=== PATIENT | female | born 1950 | race Caucasian/White ===

== ENCOUNTER 2017-07-09 15:06 | Outpatient (CLI) | payer MEDICARE | END 2017-07-09 15:07 | disposition home or self-care (01) | LOC: BICRAD 15:06 | PROVIDERS: ATTEND Internal Medicine Gastroenterology | DX: K59.00 Constipation, unspecified (principal) | CPT/HCPCS: 74018 ==

== ENCOUNTER 2019-12-31 09:05 | Outpatient (CLI) | payer MEDICARE, OTHER ==
--- NOTE | 2019-12-31 12:42 | CT ---
Ct abdomen and pelvis with oral and iv contrast: HISTORY: Upper abdominal pain, midepigastric pain. IVS, reflux. COMPARISON: 08/23/2015. FINDINGS: Chronic changes in the right middle lobe, lingula, and posterior left lower lobe are again seen. The re is an incompletely visualized 6 mm nodule in the posterior aspect of the right lower lobe which wa s not definitely seen on the previous study. A similar peripheral 9 mm nodule is seen in the left lo wer lobe. Calcified granulomas in the liver and spleen are redemonstrated. The pancreas, adrenal glands, and r ight kidney are normal. The 5 cm septated parapelvic cyst in the left kidney is stable. No free air, free fluid, or lymphadenopathy is seen in the abdomen or pelvis. There are vascular penny cifications without evidence of aneurysmal dilatation of the abdominal aorta. There are degenerative changes in the spine. The small bowel loops are not abnormally dilated. No calcified gallstones are seen. The patient is post hysterectomy. IMPRESSION: 1. Stable CT scan of the abdomen and pelvis. No acute process. 2. New nodules in the lower lung clark should be evaluated with a dedicated CT scan of the chest. POS: [facility]
== END 2019-12-31 09:06 | disposition home or self-care (01) ==
LOC: SCSCT 09:05
PROVIDERS: ATTEND Internal Medicine Gastroenterology
DX: R10.13 Epigastric pain (principal); R10.10 Upper abdominal pain, unspecified; R91.8 Other nonspecific abnormal finding of lung field
CPT/HCPCS: 74177; 82565

== ENCOUNTER 2023-12-27 03:10 | Inpatient (IN) | payer MEDICARE, OTHER ==
[2023-12-27] MEDS ORDERED: Morphine 4 MG/ML VIAL ONE (03:32)
[2023-12-27] MEDS ORDERED: Ondansetron PF 4 MG/2 ML Vial ONE (03:33)
[2023-12-27 04:46] LABS: Troponin I 0.172 ng/mL (< 0.028)
[2023-12-27] MEDS ORDERED: Acetaminophen 500 MG TAB ONE (05:40)
[2023-12-27 06:13] LABS: #Basophils Less than 0.03 10x3/uL (0.0-0.2); %Basophils 0.2 % (0.0-1.0); %Eosinophils 0.5 % (0.0-10.0); %Lymphocytes 7.1 % (21.0-51.0); %Monocytes 7.7 % (0.0-10.0); %Neutrophils 83.5 % (42.0-75.0); Hematocrit 40.4 % (36.0-47.0); Hemoglobin 14.5 g/dL (12.0-16.0); Mean Corpuscular HGB CONC 35.9 g/dL (32.0-36.0); Mean Corpuscular Volume 94.6 fL (78.0-98.0); Mean Platelet Volume 9.3 fL (7.4-10.4); Platelet Count 203 10x3/uL (130-400); RBC Distribution Width 12.6 % (11.5-14.5); Red Blood Cell (RBC) Count 4.27 mill/uL (4.20-5.40)
[2023-12-27 06:19] LABS: ALT (SGPT) 15 U/L (8-55); AST (SGOT) 23 U/L (5-34); Albumin 3.4 g/dL (3.4-4.8); Alkaline Phosphatase 86 U/L (40-110); Anion Gap 13 mmol/L (10-20); BUN (Urea Nitrogen) 8 mg/dL (9.8-20.1); Bilirubin, Total 0.8 mg/dL (0.2-1.2); Calc. Creatinine Clearance 0 mL/min (70-130); Carbon Dioxide 19 mmol/L (23-31); Chloride 96 mmol/L (98-107); Estimated GFR 91; Globulin 2.5 g/dL (2.4-3.5); Glucose 74 mg/dL (83-110); Potassium 3.1 mmol/L (3.5-5.1); Protein, Total 5.9 g/dL (5.8-8.1); Sodium 125 mmol/L (136-145)
[2023-12-27] MEDS ORDERED: Calcium Carbonate 500 MG ChewTAB PO PRN (07:31)
[2023-12-27] MEDS ORDERED: Ondansetron PF 4 MG/2 ML Vial IVP PRN (07:31)
[2023-12-27] MEDS ORDERED: Benzonatate 100 MG CAP PO PRN (07:36)
[2023-12-27 08:11] VITALS: BMI 19.6
[2023-12-27 08:48] LABS: Troponin I 0.174 ng/mL (< 0.028)
[2023-12-27] MEDS: Potassium Chloride 20 MEQ TAB PO SCH ×2 (08:52→18:41)
[2023-12-27] MEDS: Sodium Bicarbonate Tab 325 MG TAB PO SCH (08:52)
[2023-12-27] MEDS: Sodium Chloride 0.9% 1,000 ML IV SCH (08:53)
[2023-12-27] MEDS: Pantoprazole DR 40 MG TAB PO SCH (08:53)
[2023-12-27] MEDS: guaiFENesin ER 600 MG TAB PO SCH (08:53)
[2023-12-27] MEDS: Aspirin 81 mg Enteric Coated Tablet PO SCH (08:53)
[2023-12-27] MEDS ORDERED: Enoxaparin 40 MG (0.4 mL) SYRINGE SC SCH (09:00)
[2023-12-27] MEDS: Enoxaparin 80 MG (0.8 mL) SYRINGE SC SCH (10:02)
[2023-12-27] MEDS ORDERED: Iopamidol 370 76% 100 ML VIAL ONE (10:04)
[2023-12-27 11:53] LABS: Troponin I 0.325 ng/mL (< 0.028)
[2023-12-27] MEDS: Nitroglycerin 2% Ointment 1 INCH/1 GM Packet TOP SCH ×2 (13:22→20:59)
[2023-12-27] MEDS: LevoFLOXacin 750 mg/D5W 750 MG in Premix 1 BAG IVPB SCH (13:26)
[2023-12-27] MEDS: Acetaminophen 325 MG TAB PO PRN (13:43)
[2023-12-27 16:51] LABS: Troponin I 0.484 ng/mL (< 0.028)
[2023-12-27 17:19] LABS: Anion Gap 14 mmol/L (10-20); BUN (Urea Nitrogen) 7 mg/dL (9.8-20.1); Calc. Creatinine Clearance 55 mL/min (70-130); Calcium 8.3 mg/dL (7.8-10.44); Carbon Dioxide 21 mmol/L (23-31); Chloride 98 mmol/L (98-107); Estimated GFR 87; Glucose 85 mg/dL (83-110); Magnesium 1.3 mg/dL (1.6-2.6); Potassium 3.5 mmol/L (3.5-5.1); Sodium 129 mmol/L (136-145)
[2023-12-27] MEDS: Cefepime 1 GM in Sodium Chloride 0.9% 100 ML IVPB SCH (17:39)
[2023-12-27] MEDS ORDERED: Magnesium Sulfate 4 GM in Sodium Chloride 0.9% 250 ML 250 ML IVPB SCH (18:15)
[2023-12-27] MEDS: Magnesium Sulfate In Water 4 GM in Premix 1 BAG IVPB SCH (18:41)
[2023-12-27 19:59] LABS: Troponin I 0.611 ng/mL (< 0.028)
[2023-12-27] MEDS ORDERED: TOBRAMYCIN 300 MG/5 ML INH SCH (21:00)
[2023-12-27] MEDS: Pregabalin 75 MG CAP PO SCH (21:00)
[2023-12-27] MEDS: Amitriptyline HCl 10 MG TAB PO SCH (21:00)
[2023-12-27] MEDS: traZODone HCl 50 MG TAB PO SCH (21:01)
[2023-12-27] MEDS ORDERED: Morphine 2 MG/ML VIAL SLOW IVP PRN (21:38)
[2023-12-27] MEDS: Mometasone 100 MCG/Formoterol 5 MCG 120 PUFF INHALER INH SCH (21:51)
[2023-12-27 22:30] LABS: Critical Call Chem Troponin I RESULT DECREASING; Troponin I 0.538 ng/mL (< 0.028)
[2023-12-28 05:46] LABS: #Basophils 0.03 10x3/uL (0.0-0.2); %Basophils 0.3 % (0.0-1.0); %Eosinophils 1.1 % (0.0-10.0); %Lymphocytes 7.4 % (21.0-51.0); %Monocytes 7.5 % (0.0-10.0); Hematocrit 49.2 % (36.0-47.0); Hemoglobin 16.9 g/dL (12.0-16.0); Mean Corpuscular HGB CONC 34.3 g/dL (32.0-36.0); Mean Corpuscular Hemoglobin 34.2 pg (27.0-31.0); Mean Corpuscular Volume 99.6 fL (78.0-98.0); Mean Platelet Volume 8.7 fL (7.4-10.4); Platelet Count 187 10x3/uL (130-400); RBC Distribution Width 12.9 % (11.5-14.5); Red Blood Cell (RBC) Count 4.94 mill/uL (4.20-5.40)
[2023-12-28 05:55] LABS: Hemoglobin A1c 4.8 % (4.0-6.0)
[2023-12-28] MEDS: Ipratropium Bromide 2.5 ml Neb NEB SCH (07:09)
[2023-12-28 07:18] LABS: ALT (SGPT) 17 U/L (8-55); AST (SGOT) 36 U/L (5-34); Albumin 3.4 g/dL (3.4-4.8); Anion Gap 16 mmol/L (10-20); Calcium 8.1 mg/dL (7.8-10.44); Carbon Dioxide 14 mmol/L (23-31); Chloride 103 mmol/L (98-107); Cholesterol 227 mg/dl (< 200 Desired); Globulin 3.3 g/dL (2.4-3.5); Glucose 57 mg/dL (83-110); Protein, Total 6.7 g/dL (5.8-8.1); Sodium 128 mmol/L (136-145); Triglycerides 157 mg/dL (Less than 150)
[2023-12-28 08:25] LABS: Alkaline Phosphatase 100 U/L (40-110); BUN (Urea Nitrogen) 6 mg/dL (9.8-20.1); Bilirubin, Total 0.8 mg/dL (0.2-1.2); Calc. Creatinine Clearance 57 mL/min (70-130); Cardiac Risk 4.4 (Less than 4.5); Estimated GFR 90; HDL Cholesterol 56 mg/dL (>60 Neg Risk); LDL Cholesterol, Calculated 162 mg/dL; Magnesium 2.5 mg/dL (1.6-2.6)
[2023-12-28] MEDS ORDERED: Enoxaparin 80 MG (0.8 mL) SYRINGE SC SCH (09:00)
[2023-12-28] MEDS: Thyroid 30 MG TAB PO SCH (09:17)
[2023-12-28] MEDS: Pantoprazole DR 40 MG TAB PO SCH (09:18)
[2023-12-28] MEDS: Loratadine 10 MG TAB PO SCH (09:19)
[2023-12-28] MEDS: Enoxaparin 60 MG (0.6 mL) SYRINGE SC SCH (09:21)
[2023-12-28] MEDS: LevoFLOXacin 750 mg/D5W 750 MG in Premix 1 BAG IVPB SCH (09:29)
[2023-12-28] MEDS: Floranex 1 GM Packet PO SCH (12:01)
[2023-12-28] MEDS: Amlodipine 10 MG TAB PO SCH (12:02)
[2023-12-28] MEDS: Polyvinyl Alcohol 1.4%/Povidone 0.6% Opth Drops EA EYE PRN (15:32)
[2023-12-29 04:25] LABS: Hematocrit 44.7 % (36.0-47.0); Hemoglobin 15.4 g/dL (12.0-16.0); Mean Corpuscular HGB CONC 34.5 g/dL (32.0-36.0); Mean Corpuscular Hemoglobin 33.5 pg (27.0-31.0); Mean Corpuscular Volume 97.2 fL (78.0-98.0); Mean Platelet Volume 8.4 fL (7.4-10.4); Platelet Count 194 10x3/uL (130-400); RBC Distribution Width 12.9 % (11.5-14.5)
[2023-12-29 04:44] LABS: Anion Gap 14 mmol/L (10-20); BUN (Urea Nitrogen) 9 mg/dL (9.8-20.1); Calc. Creatinine Clearance 58 mL/min (70-130); Calcium 8.6 mg/dL (7.8-10.44); Carbon Dioxide 18 mmol/L (23-31); Chloride 100 mmol/L (98-107); Estimated GFR 90; Glucose 67 mg/dL (83-110); Potassium 3.9 mmol/L (3.5-5.1); Sodium 128 mmol/L (136-145)
[2023-12-29] MEDS: Ipratropium/Albuterol 3 ML NEB NEB PRN (08:41)
[2023-12-29] MEDS: Amlodipine 10 MG TAB PO SCH (09:50)
[2023-12-29] MEDS: Sodium Chloride 1 GM TAB PO SCH (16:40)
[2023-12-29] MEDS: Cefepime 2 GM in Sodium Chloride 0.9% 100 ML IVPB SCH (16:40)
[2023-12-30 06:01] LABS: Anion Gap 16 mmol/L (10-20); BUN (Urea Nitrogen) 7 mg/dL (9.8-20.1); Calc. Creatinine Clearance 55 mL/min (70-130); Calcium 8.6 mg/dL (7.8-10.44); Carbon Dioxide 19 mmol/L (23-31); Chloride 102 mmol/L (98-107); Estimated GFR 87; Glucose 65 mg/dL (83-110); Potassium 3.7 mmol/L (3.5-5.1); Sodium 133 mmol/L (136-145)
[2023-12-30] MEDS: Senokot S 8.6-50 MG TAB PO PRN (16:25)
[2023-12-31] MEDS: Ipratropium Bromide 2.5 ml Neb NEB SCH (07:19)
[2023-12-31] MEDS: Polyethylene Glycol 3350 17 GM Packet PO SCH (12:51)
[2024-01-01] MEDS ORDERED: Communication Order-Pharmacy FS SCH (06:00)
[2024-01-01] MEDS: Sodium Chloride 0.9% 1,000 ML IV SCH (06:38)
[2024-01-01] MEDS ORDERED: fentaNYL 50 mcg/mL 1 mL Vial ONE (06:39)
[2024-01-01] MEDS ORDERED: Heparin 10,000 UNITS/ 10 ML VIAL ONE (06:40)
[2024-01-01] MEDS ORDERED: Nitroglycerin 50 MG/250 ML BOT 250 ML ONE (06:40)
[2024-01-01] MEDS ORDERED: Midazolam HCl 2 mg/2 ml Vial ONE (06:40)
[2024-01-01] MEDS ORDERED: Verapamil 5 MG/2 ML VIAL ONE (06:40)
[2024-01-01] MEDS ORDERED: Sodium Chloride 0.9% 200 ML IV PRN (08:32)
[2024-01-01] MEDS ORDERED: Acetaminophen/Codeine 30-300mg Tablet PO PRN (08:32)
[2024-01-01] MEDS: Sodium Chloride 0.9% 500 ML IV SCH (09:41)
[2024-01-01] MEDS: Polyethylene Glycol 3350 17 GM Packet PO SCH (14:03)
[2024-01-01 16:00] VITALS: TEMP 97.8
[2024-01-01 17:40] VITALS: BP 148/82
== END 2024-01-01 18:11 | disposition home or self-care (01) | DRG 177 ==
LOC: SUATTDRO 03:10 → ERS 03:10 → 2SE 06:16
PROVIDERS: ADMIT Internal Medicine; ATTEND Internal Medicine
PROC: 4A023N7 Measurement of Cardiac Sampling and Pressure, Left Heart, Percutaneous Approach (ICD-10-PCS; principal; 2024-01-01)
PROC: B2111ZZ Fluoroscopy of Multiple Coronary Arteries using Low Osmolar Contrast (ICD-10-PCS; 2024-01-01)
PROC: B2151ZZ Fluoroscopy of Left Heart using Low Osmolar Contrast (ICD-10-PCS; 2024-01-01)
DX: J15.1 Pneumonia due to Pseudomonas (principal); I21.A1 Myocardial infarction type 2; E87.1 Hypo-osmolality and hyponatremia; E87.20 Acidosis, unspecified; G62.9 Polyneuropathy, unspecified; I10 Essential (primary) hypertension; E87.6 Hypokalemia; K59.00 Constipation, unspecified; E03.9 Hypothyroidism, unspecified; J44.9 Chronic obstructive pulmonary disease, unspecified; F39 Unspecified mood [affective] disorder; Z87.891 Personal history of nicotine dependence; Z88.8 Allergy status to other drugs, medicaments and biological substances; Z88.1 Allergy status to other antibiotic agents; Z88.5 Allergy status to narcotic agent
CPT/HCPCS: 36415; 71275; 80048; 80053; 80061; 83036; 83735; 83930; 83935; 84145; 84443; 84484; 85025; 85027; 93005; 93306; 94664; C1769; C1894; J0692; J1644; J1650; J1956; J2250; J2272; J2405; J3010; J3475; J7030; J7620; J7644; Q9967